=== PATIENT | male | born 1965 | race Caucasian/White ===

== ENCOUNTER 2023-05-07 15:50 | Emergency (ER) | payer BC, SELFPAY ==
[2023-05-07 16:40] VITALS: BP 167/64; PULSE 62; RESP 17; TEMP 36.6; O2SAT 97
[2023-05-07] MEDS: LIDOCAINE HCL 2% GEL UROJET 10 ML PKG MUCOUS MEM (17:16)
[2023-05-07 17:20] LABS: Appearance Urine Clear (Clear); Bacteria Urine None Seen /hpf; Bilirubin Urine Negative (Negative); Blood Urine 3+ (Negative); Color Urine Yellow (Yellow); Glucose Urine UA Negative (Negative); Ketones Urine Negative (Negative); Leukocyte Esterase Ur Negative LEU/UL (Negative); Nitrate Urine Negative (Negative); Non Pathogenic Casts 0-2; Protein Urine Negative (Negative); RBC Urine >100 /hpf (0-2); Squamous Epithelial Cell Urine None seen /hpf (Few); WBC Urine 0-5 /hpf; pH Urine 5.5 (5.0-9.0)
[2023-05-07 17:22] LABS: Add Urine Microscopic? YES
--- NOTE | 2023-05-07 17:48 | ED.MALEGU ---
HPI - Male Genitourinary General Chief complaint: Urogenital-Male Stated complaint: trouble urinating post procedure Time Seen by Provider: 05/07/23 17:47 Source: patient and family Mode of arrival: ambulatory Limitations: no limitations History of Present Illness HPI Narrative: 58 YEARS OLD WHITE MALE CAME TO THE EMERGENCY ROOM WITH HIS BY PRIVATE CAR COMPLAINING OF DIFFICULT URINATING AND DECREASED URINE OUTPUT OVER THE LAST 3 HOURS AFTER HAVING A CYSTOSCOPY AT [facility] TODAY FOR GROSS HEMATURIA. Related Data Allergies Allergy/AdvReac Type Severity Reaction Status Date / Time No Known Allergies Allergy Unknown Verified 05/07/23 16:48 Review of Systems Review of Systems: All systems reviewed & are unremarkable except as noted in HPI and below Exam Narrative: GENERAL APPEARANCE: WELL-DEVELOPED, WELL-NOURISHED SKIN: NORMAL COLOR HEAD: NORMOCEPHALIC, NONTRAUMATIC EYES: CLEAR CONJUNCTIVA ENT: OROPHARYNX NORMAL, EARS NORMAL, NOSE NORMAL NECK: SUPPLE, NONTENDER CHEST AND RESPIRATORY: AIRWAY PATENT, NO RESPIRATORY DISTRESS, NO ACCESSORY MUSCLE USE HEART: REGULAR RATE/RHYTHM ABDOMEN: SOFT, NONTENDER, NO ORGANOMEGALY, QUIET BOWEL SOUNDS VASCULAR: NORMAL PERIPHERAL PULSES, NORMAL CAPILLARY REFILL. MUSCULOSKELETAL: NORMAL RANGE OF MOTION, NONTENDER BACK NEUROLOGIC: ALERT AND ORIENTED ?3, DATE PITTER IS NORMAL TESTED, NO GROSS MOTOR DEFICIT Course Vital Signs Vital signs: Vital Signs Temperature 36.6 C 05/07/23 16:40 Pulse Rate 62 05/07/23 16:40 Respiratory Rate 17 05/07/23 16:40 Blood Pressure 167/64 H 05/07/23 16:40 Pulse Oximetry 97 05/07/23 16:40 Oxygen Delivery Room Air 05/07/23 16:40 Temperature 36.6 C 05/07/23 16:40 Pulse Rate 62 05/07/23 16:40 Respiratory Rate 17 05/07/23 16:40 Blood Pressure 167/64 H 05/07/23 16:40 Pulse Oximetry 97 05/07/23 16:40 Oxygen Delivery Room Air 05/07/23 16:40 MDM - Male Genitourinary MDM Narrative Medical decision making narrative: URINARY TENSION STATUS POST CYSTOSCOPY 3 HOURS PRIOR TO ARRIVAL TO THE ED. BLADDER SCAN SHOWED 350 CC OF URINE, YATES CATHETER PLACED, 400 CC URINE OUTPUT, PATIENT FEELING MUCH BETTER, DISCHARGED WITH YATES CATHETER TO BE REMOVED IN 3-5 DAYS. PATIENT WAS ADVISED TO CALL HIS UROLOGIST SOON POSSIBLE TO REMOVE THE CATHETER IN 3-5 DAYS URINALYSIS SHOWED SLIGHT HEMATURIA Differential Diagnosis Differential diagnosis: Likely other (URINARY RETENTION) Lab Data Attestation: I reviewed the patient's lab results. Labs: Lab Results 05/07/23 Range/Units 17:11 Urine Color Yellow (Yellow) Urine Appearance Clear (Clear) Urine pH 5.5 (5.0-9.0) Ur Specific [place] 1.020 (1.001-1.035) Urine Protein Negative (Negative) mg/dL Urine Glucose (UA) Negative (Negative) mg/dL Urine Ketones Negative (Negative) mg/dL Ur Blood (Man) 3+ H (Negative) Urine Nitrate Negative (Negative) Urine Bilirubin Negative (Negative) Urine Urobilinogen 1.0 (<2.0) mg/dL Leukocyte Esterase Rfl Negative (Negative) JAMEE/UL Urine RBC >100 H (0-2) /hpf Urine WBC 0-5 /hpf Ur Squamous Epith Cells None seen (Few) /hpf Urine Bacteria None seen /hpf Urine Casts 0-2 Critical Care Time Critical Care Time Critical Care Time: No Discharge Plan Discharge Clinical Impression: Urinary retention with incomplete bladder emptying, Yates catheter status Patient Disposition: Home, Self-Care Condition: Improved Instructions: Urinary Retention in Men (ED), Yates Catheter Placement and Care (ED), How to Change a Catheter Drainage Bag (DC) Additional Instructions: RETURN IF SYMPTOMS ARE WOR
== END 2023-05-07 18:28 | disposition home or self-care (01) ==
LOC: ANHED 18:08
PROVIDERS: Emergency Provider Emergency Medicine; PCP Family Medicine
DX: N99.89 Other postprocedural complications and disorders of genitourinary system (principal); R33.8 Other retention of urine
CPT/HCPCS: 51702; 81001; 99283